=== PATIENT | female | born 1940 | race Caucasian/White ===

== ENCOUNTER 2024-04-10 06:31 | Day surgery (SDC) | payer OTHER ==
[2024-04-10] VITALS (11 sets, daily range): BP systolic 107–126; BP diastolic 50–62; PULSE 73–82; RESP 14–18; TEMP 97–97.6
[~2024-04-10] VITALS: Ht 180.3 cm; Wt 79.8 kg
[~2024-04-10 06:31] MED LIST: ALPR-411 PO; CARV3.12 PO; CITA10TA89 PO; DENO60DI SQ; FERR324T4 PO; FLUT16H NS; FURO40TA5 PO; LEVO5TAB13 PO
[2024-04-10] MEDS: 0.9%NACL 1000ML 1,000 ML IV ONE (07:17)
[2024-04-10] MEDS ORDERED: proPOFol 10 MG/ML 20ML VIAL IV ONE (08:55)
--- NOTE | 2024-04-10 10:27 | NUR ---
FULL AND COMPLETE DISCHARGE INSTRUCTIONS GIVEN BOTH VERBALLY AND IN WRITING TO PATIENT AND FAMILY. ALL QUESTIONS ANSWERED. PIV REMOVED WITH CATHETER TIP INTACT. DENIES CURRENT PAIN OR NAUSEA. VOICED UNDERSTANDING TO EGD INSTRUCTIONS AND FOLLOW UP. W/C TO POV WITH FAMILY TO HOME.
== END 2024-04-10 10:30 | disposition home or self-care (01) ==
LOC: ENDO 06:31 → DAH 06:31 → ENDO 10:30
PROVIDERS: ATTEND Internal Medicine Gastroenterology
DX: K92.1 Melena (principal); K63.5 Polyp of colon; K64.1 Second degree hemorrhoids; K57.30 Diverticulosis of large intestine without perforation or abscess without bleeding; D12.3 Benign neoplasm of transverse colon; D12.4 Benign neoplasm of descending colon; M19.90 Unspecified osteoarthritis, unspecified site; F41.9 Anxiety disorder, unspecified; F32.A Depression, unspecified; I48.91 Unspecified atrial fibrillation; I10 Essential (primary) hypertension; E66.9 Obesity, unspecified; Z86.2 Personal history of diseases of the blood and blood-forming organs and certain disorders involving the immune mechanism; Z79.82 Long term (current) use of aspirin; Z79.899 Other long term (current) drug therapy; Z68.26 Body mass index [BMI] 26.0-26.9, adult
CPT/HCPCS: 45380; 45385; J7030 ×2; J2704; A4620; A4215; A4223; A7002; A4222; A4221; A4663; A4606; J3490